=== PATIENT | male | born 1940 | race Caucasian/White ===

== ENCOUNTER 2023-10-14 10:49 | Inpatient (IN) | payer MEDICARE ==
[2023-10-14] MEDS ORDERED: Ondansetron ODT 4 MG TAB PO PRN (18:23)
[2023-10-14] MEDS: Ciprofloxacin 500 MG TAB PO SCH (22:46)
[2023-10-14] MEDS: Atorvastatin Calcium 10 MG TAB PO SCH (22:46)
[2023-10-14] MEDS: Enoxaparin 40 MG (0.4 mL) SYRINGE SC SCH (22:47)
[2023-10-14] MEDS: Lantus 1000 UNITS/10 ML VIAL SC SCH (22:47)
[2023-10-14] MEDS: Mometasone 100 MCG/Formoterol 5 MCG 60 PUFF AEROSOL INH SCH (22:54)
[2023-10-15 04:57] LABS: #Basophils 0.1 thou/uL (0.0-0.2); #Eosinphils 0.4 thou/uL (0.0-0.7); #Lymphocytes 1.2 thou/uL (1.20-3.40); #Monocytes 0.7 thou/uL (0.11-0.59); #Neutrophils 4.6 thou/uL (1.40-6.50); %Basophils 1.2 % (0.0-1.0); %Eosinophils 5.9 % (0.0-10.0); %Lymphocytes 17.2 % (21.0-51.0); %Monocytes 10.1 % (0.0-10.0); %Neutrophils 65.7 % (42.0-75.0); Hematocrit 35.1 % (42.0-52.0); Hemoglobin 11.5 g/dL (14.0-18.0); Mean Corpuscular HGB CONC 32.9 g/dL (32.0-36.0); Mean Corpuscular Hemoglobin 29.3 pg (27.0-31.0); Mean Corpuscular Volume 88.9 fl (78.0-98.0); Mean Platelet Volume 7.3 fL (7.4-10.4); Platelet Count 195 10x3/uL (130-400); RBC Distribution Width 12.7 % (11.5-14.5); Red Blood Cell (RBC) Count 3.94 mill/uL (4.70-6.10)
[2023-10-15 05:42] LABS: ALT (SGPT) 56 U/L (8-55); AST (SGOT) 33 U/L (5-34); Albumin 3.2 g/dL (3.4-4.8); Alkaline Phosphatase 48 U/L (40-110); Anion Gap 14 mmol/L (10-20); BUN (Urea Nitrogen) 19 mg/dL (8.4-25.7); Bilirubin, Total 0.4 mg/dL (0.2-1.2); Calc. Creatinine Clearance 54 mL/min (70-130); Calcium 8.8 mg/dL (7.8-10.44); Carbon Dioxide 30 mmol/L (23-31); Chloride 100 mmol/L (98-107); Estimated GFR 60; Globulin 2.6 g/dL (2.4-3.5); Glucose 233 mg/dL (83-110); Potassium 4.3 mmol/L (3.5-5.1); Protein, Total 5.8 g/dL (5.8-8.1); Sodium 140 mmol/L (136-145)
[2023-10-15] MEDS ORDERED: Dextrose 50% Abboject 50 ML SYRINGE SLOW IVP PRN (08:08)
[2023-10-15] MEDS ORDERED: Glucagon 1 MG/ML KIT IM PRN (08:08)
[2023-10-15] MEDS ORDERED: Dextrose 5% in Water 1,000 ML IV PRN (08:08)
[2023-10-15] MEDS: HumaLOG 300 UNITS/3 ML VIAL SC PRN (11:07)
[2023-10-15] MEDS: Aspirin Chewable 81 MG TAB PO SCH (11:09)
[2023-10-15] MEDS: Tamsulosin HCl 0.4 MG CAP PO SCH (11:10)
[2023-10-15] MEDS: Finasteride 5 MG TAB PO SCH (11:10)
[2023-10-15] MEDS: Furosemide 20 MG TAB PO SCH (11:10)
[2023-10-15] MEDS: Losartan 50 MG TAB PO SCH (11:10)
[2023-10-15] MEDS: Pantoprazole DR 40 MG TAB PO SCH (11:10)
[2023-10-15] MEDS: Potassium Chloride 10 MEQ TAB PO SCH (11:11)
[2023-10-16] MEDS: Acetaminophen 325 MG TAB PO PRN (20:32)
[2023-10-16] MEDS: HumaLOG 300 UNITS/3 ML VIAL SC PRN (20:40)
[2023-10-18 06:35] VITALS: BMI 26.5
[2023-10-18] MEDS: Senokot S 8.6-50 MG TAB PO PRN (21:49)
[2023-10-20] MEDS: Dulaglutide [Trulicity] 0.75 MG/0.5 ML Pen.Injctr SC SCH (09:00)
[2023-10-21 05:51] VITALS: BMI 26.5
[2023-10-21 16:33] VITALS: BP 132/65; TEMP 98.6
== END 2023-10-21 18:30 | disposition home or self-care (01) | DRG 948 ==
LOC: BURMED 20:25
PROVIDERS: ADMIT Family Medicine; ATTEND Family Medicine
DX: R53.81 Other malaise (principal); N39.0 Urinary tract infection, site not specified; J44.9 Chronic obstructive pulmonary disease, unspecified; E11.21 Type 2 diabetes mellitus with diabetic nephropathy; E78.5 Hyperlipidemia, unspecified; K21.9 Gastro-esophageal reflux disease without esophagitis; N40.0 Benign prostatic hyperplasia without lower urinary tract symptoms; I10 Essential (primary) hypertension; M19.90 Unspecified osteoarthritis, unspecified site; Z98.890 Other specified postprocedural states; Z79.899 Other long term (current) drug therapy; Z79.82 Long term (current) use of aspirin; Z88.1 Allergy status to other antibiotic agents
CPT/HCPCS: 36415; 36416; 80053; 85025; 94664; J1650; J1815